=== PATIENT | female | born 1990 | race Caucasian/White ===

== ENCOUNTER 2017-12-16 00:19 | Emergency (ER) | payer SELFPAY ==
[2017-12-16 00:19] VITALS: BMI 31.1
[2017-12-16 00:29] VITALS: BP 122/76; PULSE 66; RESP 16; TEMP 98.5; O2SAT 99
[2017-12-16] MEDS ORDERED: Oxycodone/Acetaminophen 5/325 mg Tab PO STA (00:42)
[2017-12-16] MEDS ORDERED: Oxycodone/Acetaminophen 5/325 mg Tab ONE (01:00)
--- NOTE | 2017-12-16 01:00 | C.PDOC ---
History Of Present Illness 27 year old female presents to the ED c/o dental pain. Patient reports she broke her left lower molar yesterday, clearly in acute distress due to pain. Patient reports she took Motrin at home with no relief to her symptoms. Patient denies fever, chills, nausea, vomit, injury, fall, trauma. Time Seen by Provider: 12/16/17 00:35 Chief Complaint (Nursing): Dental Pain History Per: Patient History/Exam Limitations: no limitations Onset/Duration Of Symptoms: Days Current Symptoms Are (Timing): Still Present Severity: Moderate Quality: Positive for: "Pain" Recent travel outside of the [place]: No Additional History Per: Patient Past Medical History Reviewed: Historical Data, Nursing Documentation, Vital Signs Vital Signs: Last Vital Signs Temp 98.5 F 12/16/17 00:27 Pulse 66 12/16/17 00:27 Resp 16 12/16/17 00:27 BP 122/76 12/16/17 00:27 Pulse Ox 99 12/16/17 01:22 - Medical History PMH: Kidney Stones, Chronic Kidney Disease Surgical History: - [facility] Procedures EXTRACTION OF POC, LOW CERVICAL, OPEN APPROACH (02/12/17) MONITORING OF POC, CARDIAC RATE, PAYROLL PROFESSIONAL APPROACH (02/12/17) RESECTION OF APPENDIX, PERCUTANEOUS ENDOSCOPIC APPROACH (08/17/15) Family History: States: Unknown Family Hx - Social History Hx Alcohol Use: No Hx Substance Use: No Review Of Systems Constitutional: Negative for: Fever, Chills ENT: Positive for: Mouth Pain Cardiovascular: Negative for: Chest Pain Respiratory: Negative for: Cough, Shortness of Breath Gastrointestinal: Negative for: Nausea, Vomiting Skin: Negative for: Rash Neurological: Negative for: Weakness, Numbness Physical Exam - Physical Exam Appears: Non-toxic, In Acute Distress (due to pain) Skin: Normal Color, Warm, Dry Head: Atraumatic, Normacephalic Eye(s): bilateral: Normal Inspection, PERRL, EOMI Ear(s): Bilateral: Normal Oral Mucosa: Moist Teeth: Tender To Palpation (left lower molar), Other (broken tooth left lower molar. no abscess) Gingiva: No Swelling, No Bleeding Neck: Normal ROM, Supple Neurological/Psych: Oriented x3, Normal Speech Gait: Steady ED Course And Treatment O2 Sat by Pulse Oximetry: 99 (On RA) Pulse Ox Interpretation: Normal Progress Note: Plan: - Penicillin 500 mg PO. - Percocet 1 tab PO. - Toradol 60 mg IM. Patient state she feel better after the pain medication was administered. Patient was D/C home and instructed to follow up with a dentist for further evaluation. Disposition - Disposition Referrals: [facility] [Outside] Disposition: HOME/ ROUTINE Disposition Time: 01:19 Condition: IMPROVED Additional Instructions: Follow up with Dentist within 2-3 days. Return to ED if feel worse. Prescriptions: Ibuprofen [Motrin Tab] 600 mg PO Q8 #30 tab Penicillin VK [Penicillin VK Tab] 500 mg PO Q6 #28 tab oxyCODONE/Acetaminophen [Percocet 5/325 mg Tab] 1 tab PO QID PRN #10 tab PRN Reason: Pain Instructions: Dental Pain (DC) Forms: [employer] (Indonesian), [facility] Print Language: PORTUGUESE - Clinical Impression Clinical Impression: Toothache - PA / THORACIC MEDICINE SPECIALIST / Resident Statement MD/DO has reviewed & agrees with the documentation as recorded. - Scribe Statement The provider has reviewed the documentation as recorded by the Scribe Edwin Arreola All medical record entries made by the Jimibheavenly were at my direction and personally dictated by me. I have reviewed the chart and agree that the record accurately reflects my personal performance of the history, physical exam, medical decision making, and the department course for this patient. I have also personally directed, reviewed, and agree with the discharge instructions and disposition.
== END 2017-12-16 01:36 | disposition home or self-care (01) ==
LOC: C.ER 00:19
DX: K08.89 Other specified disorders of teeth and supporting structures (principal)
CPT/HCPCS: 96372; 99283; J1885

== ENCOUNTER 2017-12-16 10:06 | Emergency (ER) | payer SELFPAY ==
[2017-12-16 10:06] VITALS: BMI 31.1
[2017-12-16 10:19] VITALS: BP 134/84; PULSE 90; RESP 16; TEMP 98.4; O2SAT 99
[2017-12-16] MEDS ORDERED: Oxycodone/Acetaminophen 5/325 mg Tab PO STA (10:55)
[2017-12-16] MEDS ORDERED: Oxycodone/Acetaminophen 5/325 mg Tab ONE (11:31)
--- NOTE | 2017-12-16 12:01 | C.PDOC ---
History Of Present Illness 27yo female, presents to ER for evaluation of pain to her left lower jaw. Patient was seen in this ER at 0030 and was discharged home with prescription for Percocet, Motrin and Penicillin VK. Patient returns stating she has not been able to fill her prescription and states she took 2 tablets of Motrin this morning with no relief of pain. She denies any fever, chills, new injuries and offers no other medical complaints. PMD: None Time Seen by Provider: 12/16/17 10:45 Chief Complaint (Nursing): Dental Pain History Per: Patient History/Exam Limitations: no limitations Onset/Duration Of Symptoms: Persistent Current Symptoms Are (Timing): Still Present Quality: Positive for: "Pain" Additional History Per: Patient Past Medical History Reviewed: Historical Data, Nursing Documentation, Vital Signs Vital Signs: Last Vital Signs Temp 98.4 F 12/16/17 10:16 Pulse 90 12/16/17 10:16 Resp 16 12/16/17 10:16 BP 134/84 12/16/17 10:16 Pulse Ox 99 12/16/17 12:18 - Medical History PMH: Kidney Stones, Chronic Kidney Disease Surgical History: - [facility] Procedures EXTRACTION OF POC, LOW CERVICAL, OPEN APPROACH (02/12/17) MONITORING OF POC, CARDIAC RATE, PARA EDUCATOR APPROACH (02/12/17) RESECTION OF APPENDIX, PERCUTANEOUS ENDOSCOPIC APPROACH (08/17/15) Family History: States: Unknown Family Hx - Social History Hx Alcohol Use: No Hx Substance Use: No Review Of Systems Constitutional: Negative for: Fever, Chills ENT: Positive for: Other (left lower jaw tooth pain) Physical Exam - Physical Exam Appears: Non-toxic, In Acute Distress (from pain) Skin: Warm, Dry Head: Atraumatic, Normacephalic, No Swelling Eye(s): bilateral: Normal Inspection Oral Mucosa: Moist Teeth: Other (broken left rearmost lower molar. ) Gingiva: Normal Appearing, No Erythema, No Tender, No Abscess Throat: Normal Cardiovascular: Rhythm Regular Respiratory: Normal Breath Sounds Neurological/Psych: Oriented x3 ED Course And Treatment O2 Sat by Pulse Oximetry: 99 (RA) Pulse Ox Interpretation: Normal Medical Decision Making Medical Decision Making: pt with dental pain. seen at 1 am here in ed,. not yet filled rx. one dose meds given in ed, d/c with dental follow up and fill rx given last night. pt given dental referral list. Disposition Counseled Patient/Family Regarding: Need For Followup - Disposition Disposition: HOME/ ROUTINE Disposition Time: 12:06 Condition: IMPROVED Additional Instructions: Por favor, ve al dentista jen. Compresas fras para enfrentar y april medicamentos segn lo prescrito. Ve a comprar medicamentos hoy. Instructions: Dental Pain (DC) Forms: [employer] (Urdu), [facility] Frisian, [employer] (Frisian) Print Language: TURKISH - Clinical Impression Clinical Impression: Dental caries, Pain due to dental caries - PA / SHOEMAKER APPRENTICE / Resident Statement MD/DO has reviewed & agrees with the documentation as recorded. - Scribe Statement The provider has reviewed the documentation as recorded by the Scribe (Deb Kelly) provider Attestation: All medical record entries made by the Scribe were at my direction and personally dictated by me. I have reviewed the chart and agree that the record accurately reflects my personal performance of the history, physical exam, medical decision making, and the department course for this patient. I have also personally directed, reviewed, and agree with the discharge instructions and disposition.
== END 2017-12-16 12:12 | disposition home or self-care (01) ==
LOC: C.ER 10:06
DX: K02.9 Dental caries, unspecified (principal)
CPT/HCPCS: 96372; 99283; J1885